=== PATIENT | male | born 1955 | race Caucasian/White ===

== ENCOUNTER 2018-05-19 10:14 | Inpatient (IN) | payer OTHER ==
[~2018-05-19] VITALS: Ht 170.2 cm; Wt 87.9 kg
[2018-05-19] VITALS (26 sets, daily range): BP systolic 103–137; BP diastolic 67–87; PULSE 68–90; RESP 12–21; Ht 170.2 cm; Wt 87.9 kg
[~2018-05-19 10:14] MED LIST: LIDOCAINE 2% (SDV) 5 ML INJ ONE; SEVOFLURANE 15 MIN ONE
[2018-05-19] MEDS ORDERED: BENA20TA4 PO (10:47)
[2018-05-19] MEDS ORDERED: TAMS-14 PO (10:47)
[2018-05-19] MEDS ORDERED: ATOR20TA38 PO (10:47)
[2018-05-19] MEDS ORDERED: METF-849 PO (10:47)
--- NOTE | 2018-05-19 12:18 | HPN ---
Date/Time of Note Date/Time of Note DATE: 05/19/18 TIME: 12:18 Interval H&P Admission Note Pt. seen H&P reviewed: No system changes LEONIDES VIDAL MD May 19, 2018 12:18
--- NOTE | 2018-05-19 12:24 | PREAC ---
Date/Time of Note Date/Time of Note DATE: 05/19/18 TIME: 12:23 Anesthesia Eval and Record Evaluation Time Pre-Procedure Interview DATE: 05/19/18 TIME: 12:23 Age 62 Sex male NPO: 8 hrs Preoperative diagnosis BPH Planned procedure TURP Past Medical History Past Medical History: Includes Cardio: HTN Endo: Diabetes GI: Obesity Surgery & Anesthesia Issues No known issue Meds Anticoagulation: No Beta Aparna within 24 hr: No Reason Beta Aparna not given: Pt. not on B-Aparna Reported Medications Tamsulosin Hcl* (Flomax*) 0.4 Mg Cap.er.24h, 0.4 MG PO HS, CAP 05/19/18 Atorvastatin Calcium* (Atorvastatin Calcium*) 20 Mg Tablet, 20 MG PO QHS, #30 TAB 05/19/18 Benazepril Hcl* (Benazepril Hcl*) 20 Mg Tablet, 20 MG PO DAILY, #30 TAB 05/19/18 Metformin* (Glucophage*) 500 Mg Tab, 500 MG PO WITH BREAKFAST DINNE, #30 TAB 05/19/18 Meds reviewed: Yes Allergies Coded Allergies: No Known Allergy (Unverified , 05/19/18) Allergies Reviewed: Yes Labs/Studies Labs Reviewed: Reviewed by anesthesiologist test: N/A Pre-procedure Exam Last vitals Vital Signs Date Temp Pulse Resp B/P (MAP) Pulse Ox O2 O2 Flow FiO2 Time Delivery Rate 05/19/18 98.9 77 16 137/86 95 Room Air 11:39 (103) Airway: Adequate mouth opening, Adequate thyromental dist Mallampati: Mallampati II Teeth: Normal Lung: Normal Heart: Normal ASA Physical Status ASA physical status: 2 Emergency: None Planned Anesthetic General/MAC: LMA Planned Pain Management Parenteral pain med Pre-operative Attestations Prior to commencing anesthesia and surgery, the patient was re-evaluated, there was verification of: *The patient's identity *The results of appropriate recent lab work and preoperative vital signs *The above evaluation not changing prior to induction *Anesthetic plan, risk benefits, alternative and complications discussed with patient/family; questions answered; patient/family understands, accepts and wishes to proceed. DEION TALBERT May 19, 2018 12:24
[2018-05-19] MEDS ORDERED: PROPOFOL 20 ML ONE (12:30)
[2018-05-19] MEDS ORDERED: ROCURONIUM 50 MG INJ ONE (12:31)
[2018-05-19] MEDS ORDERED: NEOSTIGMINE 10 MG INJ ONE (14:33)
[2018-05-19] MEDS ORDERED: GLYCOPYRROLATE 0.4 MG INJ ONE (14:33)
[2018-05-19] MEDS ORDERED: CEFAZOLIN 1 GM INJ ONE (14:34)
[2018-05-19] MEDS ORDERED: DEXTROSE 5%-0.45% NACL 1,000 ML IV SCH (14:38)
--- NOTE | 2018-05-19 14:45 | OPR ---
Date/Time of Note Date/Time of Note DATE: 05/19/18 TIME: 14:42 Operative Report Procedure Date: May 19, 2018 Preoperative Diagnosis Benign prostatic hypertrophy Postoperative Diagnosis Same pending pathology report Operation/Procedure Performed Transurethral resection of the prostate Surgeon see signature line Manager Terminal nanotechnologist Anesthesia Type: general Anesthesiologist: DEION TALBERT Estimated Blood Loss: 150 - 200 ml's Transfusion none Specimen Prostatic tissue Grafts/Implants none Complications none Pt Condition Post Procedure: stable Disposition: PACU Indications Benign prostatic hypertrophy with lower urinary tract symptoms Procedure Description The patient was brought to the operating room and general anesthesia was induced. Timeout was done, the patient was identified by his name, birthdate and the procedure. The patient was given 2 g of Ancef IV at the start of the procedure. The genital area was then prepped and draped in the usual sterile manner. Cystoscopy was done with a 22 Kittitian cystoscope and it showed prostatic enlargement with obstruction. The bladder was trabeculated. There was no bladder tumors or stones. The cystoscope was then removed and the urethra was dilated with the [place] dilators up to #30 Kittitian. The 26 Kittitian bipolar resectoscope sheath was then introduced under direct vision through the penile urethra all the way to the bladder. Then the resection of the prostate was started. First the median lobe was resected then the right lateral lobe then the left lateral lobe and finally the anterior lobe as well as apical tissue. All the bleeders were electrocoagulated. All the prostatic chips were evacuated. Good hemostasis was obtained. The ureteral orifices as well as ex ternal sphincter were intact and safeguarded during the whole procedure. At the end of the procedure the resectoscope was removed and #24 Kittitian three-way Oliveira catheter was inserted into the bladder. The balloon was inflated with 60 mL of sterile water. The catheter was connected to a drainage bag and continuous bladder irrigation was started in the operating room with normal saline. The patient was transferred to the recovery room in stable and satisfactory condition. LEONIDES VIDAL MD May 19, 2018 14:45
[2018-05-19] MEDS ORDERED: HYDROmorphONE 1 MG/5 ML IV SYRINGE IV PRN ×3 (15:00)
[2018-05-19] MEDS ORDERED: OXYCODONE/ACETAMINOPHEN (5/325) TAB PO PRN ×2 (15:00)
[2018-05-19] MEDS ORDERED: LABETALOL HCL 20MG INJ IV PRN (15:00)
[2018-05-19] MEDS ORDERED: MEPERIDINE 25 MG INJ IV PRN (15:00)
[2018-05-19] MEDS ORDERED: ALBUTEROL 0.083% (NEB) 2.5 MG/3 ML AMP HHN PRN (15:00)
[2018-05-19] MEDS ORDERED: METOCLOPRAMIDE 10 MG INJ IV PRN (15:00)
[2018-05-19] MEDS ORDERED: hydrALAzine 20 MG INJ IV PRN (15:00)
[2018-05-19] MEDS ORDERED: DIPHENHYDRAMINE 50 MG INJ IV PRN (15:00)
[2018-05-19] MEDS ORDERED: EPHEDrine SULFATE 50 MG/5 ML SYG IV PRN (15:00)
[2018-05-19] MEDS ORDERED: FENTAnyl 50 MCG/ML VIAL IV PRN ×3 (15:00)
[2018-05-19] MEDS ORDERED: ONDANSETRON 4 MG INJ IV PRN (15:00)
--- NOTE | 2018-05-19 15:24 | HP ---
Date/Time of Note Date/Time of Note DATE: 05/19/18 TIME: 15:21 Assessment/Plan VTE Prophylaxis Pharmacological prophylaxis: heparin Lines/Catheters IV Catheter Type (from Nrsg): Saline Lock Assessment/Plan Hospital Course 62 yo male with hypertension, DMII, BPH who is POD0 for TURP. We have been asked to provide medical management TURP POD0: - management per Dr Gannon DMII: - Continue metformin Hyperlipidemia: - Continue lipitor Discharge plan per Dr Gannon Results 24hrs Laboratory Tests Test 05/19/18 11:13 Bedside Glucose 132 HPI/ROS Admit Date/Time Admit Date/Time May 19, 2018 at 10:19 Hx of Present Illness 62 yo male with HTN, BPH, DM who is POD0 for TURP Seen in PACU Feels wall Surgery without complications Bladder irrigation underway No pain PMH/Family/Social Past Medical History Medical History: diabetes, hypertension Medications Current Medications Dextrose/Sodium Chloride 1,000 ml @ 0 mls/hr Q0M IV ; Start 05/19/18 at 14:38 Hydromorphone HCl (Dilaudid) 0.2 mg PACU PRN IV MILD PAIN 1-3; Start 05/19/18 at 15:00; Stop 05/19/18 at 21:00 Hydromorphone HCl (Dilaudid) 0.4 mg PACU PRN IV MOD PAIN 4-6; Start 05/19/18 at 15:00; Stop 05/19/18 at 21:00 Hydromorphone HCl (Dilaudid) 0.6 mg PACU PRN IV SEVERE PAIN 7-10; Start 05/19/18 at 15:00; Stop 05/19/18 at 21:00 Fentanyl (Sublimaze) 25 mcg PACU ORDER PRN IV MILD PAIN 1-3; Start 05/19/18 at 15:00; Stop 05/19/18 at 21:00 Fentanyl (Sublimaze) 50 mcg PACU ORDER PRN IV MOD PAIN 4-6; Start 05/19/18 at 15:00; Stop 05/19/18 at 21:00 Fentanyl (Sublimaze) 75 mcg PACU ORDER PRN IV SEVERE PAIN 7-10; Start 05/19/18 at 15:00; Stop 05/19/18 at 21:00 Oxycodone/ Acetaminophen (Percocet (5/ 325)) 1 tab PACU ORDER PRN PO .PAIN 1-5; Start 05/19/18 at 15:00; Stop 05/19/18 at 21:00 Oxycodone/ Acetaminophen (Percocet (5/ 325)) 2 tab PACU ORDER PRN PO .PAIN 6-10; Start 05/19/18 at 15:00; Stop 05/19/18 at 21:00 Ondansetron HCl (Zofran Inj) 4 mg PACU ORDER PRN IV NAUSEA/VOMITING; Start 05/19/18 at 15:00; Stop 05/19/18 at 21:00 Metoclopramide HCl (Reglan) 10 mg PACU ORDER PRN IV NAUSEA/VOMITING; Start 05/19/18 at 15:00; Stop 05/19/18 at 21:00 Labetalol HCl (Labetalol) 5 mg PACU ORDER PRN IV HIGH BLOOD PRESSURE; Start 05/19/18 at 15:00; Stop 05/19/18 at 21:00 Hydralazine HCl (Apresoline) 5 mg PACU ORDER PRN IV HIGH BLOOD PRESSURE; Start 05/19/18 at 15:00; Stop 05/19/18 at 21:00 Ephedrine Sulfate 5 mg PACU ORDER PRN IV BLOOD PRESSURE SUPPORT; Start 05/19/18 at 15:00; Stop 05/19/18 at 21:00 Albuterol (Proventil 0.083% (Neb)) 2.5 mg PACU ORDER PRN HHN .WHEEZING; Start 05/19/18 at 15:00; Stop 05/19/18 at 21:00 Meperidine HCl (Demerol) 25 mg PACU ORDER PRN IV .RIGORS; Start 05/19/18 at 15:00; Stop 05/19/18 at 21:00 Diphenhydramine HCl (Benadryl) 25 mg PACU ORDER PRN IV .PRURITUS; Start 05/19/18 at 15:00; Stop 05/19/18 at 21:00 Coded Allergies: No Known Allergy (Unverified , 05/19/18) Past Surgical History TURP Family History Significant Family History: no pertinent family hx Social History Alcohol Use: none Smoking Status: Never smoker Drug Use: none Exam/Review of Systems Vital Signs Vitals Vital Signs Date Temp Pulse Resp B/P (MAP) Pulse Ox O2 O2 Flow FiO2 Time Delivery Rate 05/19/18 98.9 14:51 05/19/18 77 16 137/86 95 Room Air 11:39 (103) Exam Constitutional: alert, oriented, well developed Psych: no complaints, nl mood/affect Head: normocephalic, atraumatic Eyes: nl conjunctiva, EOMI, nl lids, nl sclera, PERRL ENMT: nl external ears & nose, nl lips & teeth, nl nasal mucosa & septum Neck: supple, non-tender Respiratory: clear to auscultation, normal air movement Cardiovascular: regular rate and rhythm, nl pulses Gastrointestinal: soft, nl liver, spleen, non-tender Musculoskeletal: nl extremities to inspection Extremities: normal pulses Neurological: DESKTOP ANALYST II-XII intact, nl mental status, nl speech, nl strength Skin: nl turgor; No rash or lesions Lymph: nl lymph nodes KELLY BARR MD May 19, 2018 15:24
[2018-05-19] MEDS ORDERED: NACL 0.9% 3 ML SYG IV SCH (15:30)
[2018-05-19] MEDS ORDERED: HYDROCODONE/APAP (5/325) TAB PO PRN (15:30)
[2018-05-19] MEDS ORDERED: GLUCOSE GEL 15 GRAM TUBE BUCCAL PRN (16:00)
[2018-05-19] MEDS ORDERED: DEXTROSE 50% 50 ML SYRINGE IV PRN ×2 (16:00)
[2018-05-19] MEDS ORDERED: GLUCOSE GEL 15 GRAM TUBE PO PRN ×2 (16:00)
[2018-05-19] MEDS ORDERED: GLUCAGON 1 MG INJ IM PRN (16:00)
[2018-05-19] MEDS: ACCU-CHEK XX SCH ×2 (17:52→21:00)
[2018-05-19] MEDS: metFORMIN 500 MG TAB PO SCH (17:52)
[2018-05-19] MEDS ORDERED: ATORVASTATIN 20 MG TAB PO SCH (21:00)
[2018-05-20 00:23] VITALS: BP 120/78; PULSE 73; RESP 18
[2018-05-20 04:55] VITALS: BP 125/74; PULSE 81; RESP 18
[2018-05-20] MEDS: ACCU-CHEK XX SCH ×2 (07:20→12:30)
[2018-05-20 08:13] VITALS: BP 127/81; PULSE 64; RESP 18
[2018-05-20] MEDS ORDERED: BENAZEPRIL 20 MG TAB PO SCH (09:00)
[2018-05-20] MEDS: metFORMIN 500 MG TAB PO SCH (09:35)
--- NOTE | 2018-05-20 10:15 | PN ---
Date/Time of Note Date/Time of Note DATE: 05/20/18 TIME: 10:13 Assessment/Plan Lines/Catheters IV Catheter Type (from Nrs): Saline Lock Loredo in Place (from Nrs): Yes Cont'd loredo catheter reason: other (indicate) (Urological surgery) Assessment/Plan Chief Complaint/Hosp Course 62-year-old male status post transurethral resection of the prostate. He is doing well. The return from the irrigation is clear. We will stop the irrigation on encourage him to drink a lot of fluids. Connect the Loredo catheter to a leg bag. He may go home this afternoon with the Loredo catheter and the leg bag and he will see me in the office next week Tuesday or Tuesday or to remove the Loredo catheter. I wrote him a prescription for Cipro 500 mg 1 tablet every 12 hours for 7 days Colace 100 mg 1 tablet twice a day 100 tablets and milk of magnesia 300 mL he will take 30 mL as needed for constipation. Subjective 24 Hr Interval Summary 62-year-old male status post transurethral resection of the prostate on 05/19/2018. He is doing well. He has no pain and the Loredo catheter is draining clear urine with the bladder irrigation. Constitutional: no complaints Exam/Review of Systems Vital Signs Vitals Vital Signs Date Temp Pulse Resp B/P (MAP) Pulse Ox O2 O2 Flow FiO2 Time Delivery Rate 05/20/18 98.6 64 18 127/81 99 08:13 (96) 05/20/18 Room Air 04:55 05/19/18 2.0 18:30 Intake and Output 05/19/18 05/19/18 05/20/18 1515:00 23:00 07:00 IntakeIntake Total 900 ml 300 ml 650 ml OutputOutput Total 40 ml 550 ml BalanceBalance 860 ml 300 ml 100 ml Exam Free Text/Dictation Patient is afebrile. The return from the irrigation is clear. Results Result Diagram: 05/20/18 0446 05/20/18 0446 LEONIDES VIDAL MD May 20, 2018 10:15
[2018-05-20] MEDS ORDERED: CIPR500T4 PO (10:25)
--- NOTE | 2018-05-20 10:26 | PDOCDIS ---
Discharge Instructions DIAGNOSIS Discharge Diagnosis TURP CONDITION [id number] Patient Condition: [id number] Stable FOLLOW UP/APPOINTMENTS Follow-up Plan Take ciprofloxacin for 7 days Make an appointment to see Dr Gannon in clinic KELLY BARR MD May 20, 2018 10:26
--- NOTE | 2018-05-20 10:37 | DS ---
Date/Time of Note Date/Time of Note DATE: 05/20/18 TIME: 10:36 Discharge Summary Admission/Discharge Info Admit Date/Time May 19, 2018 at 10:19 Discharge Date/Time Discharge Diagnosis TURP Patient Condition: Stable Hx of Present Illness 62 yo male with HTN, BPH, DM who is POD0 for TURP Seen in PACU Feels wall Surgery without complications Bladder irrigation underway No pain Hospital Course 62 yo male with hypertension, DMII, BPH who was admitted following TURP. Monitored overnight without complication Home Meds Reported Medications Tamsulosin Hcl* (Flomax*) 0.4 Mg Cap.er.24h, 0.4 MG PO HS, CAP 05/19/18 Atorvastatin Calcium* (Atorvastatin Calcium*) 20 Mg Tablet, 20 MG PO QHS, #30 TAB 05/19/18 Benazepril Hcl* (Benazepril Hcl*) 20 Mg Tablet, 20 MG PO DAILY, #30 TAB 05/19/18 Metformin* (Glucophage*) 500 Mg Tab, 500 MG PO WITH BREAKFAST DINNE, #30 TAB 05/19/18 Follow-up Plan Take ciprofloxacin for 7 days Make an appointment to see Dr Gannon in clinic Primary Care Provider Not On Staff Doctor Pending Labs Laboratory Tests Test 05/19/18 11:13 05/19/18 17:51 05/19/18 20:10 05/20/18 04:46 Bedside 132 136 194 Glucose mg/dL (70-220) mg/dL (70-220) mg/dL (70-220) White Blood 10.5 Count 10^3/ul (4.8-1 0.8) Red Blood 4.70 Count 10^6/ul (4.70- 6.10) Hemoglobin 14.1 g/dl (14.0-18. 0) Hematocrit 42.6 % (42.0-52.0) Mean 90.6 Corpuscular fl (82.0-101.0 Volume ) Mean 30.0 Corpuscular pg (29.0-33.0) Hemoglobin Mean 33.1 Corpuscular g/dl (32.0-37. Hemoglobin Conc 0) ent Red Cell 13.0 Distribution % (11.5-14.5) Width Platelet Count 160 10^3/UL (140-4 15) Mean Platelet 11.1 Volume fl (7.4-10.4) Immature 0.200 Granulocytes % % (0.001-0.429 ) Neutrophils % 75.7 % (39.0-77.0) Lymphocytes % 15.1 % (15.0-51.0) Monocytes % 6.8 % (0.0-11.0) Eosinophils % 1.9 % (0.0-7.0) Basophils % 0.3 % (0.0-2.0) Nucleated Red 0.0 Blood Cells % /100WBC (0.0-0 .0) Immature 0.020 Granulocytes # 10^3/ul (0.0-0 .031) Neutrophils # 7.9 10^3/ul (1.6-7 .5) Lymphocytes # 1.6 10^3/ul (0.8-2 .9) Monocytes # 0.7 10^3/ul (0.3-0 .9) Eosinophils # 0.2 10^3/ul (0.0-0 .5) Basophils # 0.0 10^3/ul (0.0-0 .1) Nucleated Red 0.0 Blood Cells # 10^3/ul (0.0-0 .0) Sodium Level 140 mmol/L (135-14 4) Potassium 4.2 Level mmol/L (3.5-5. 1) Chloride Level 103 mmol/L (97-110 ) Carbon Dioxide 27 Level mmol/L (21-31) Anion Gap 10 (5-13) Blood Urea 16 Nitrogen mg/dl (7-20) Creatinine 0.78 mg/dl (0.61-1. 24) Est Glomerular > 60 Filtrat mL/min (>60) Rate mL/min Glucose Level 117 mg/dl (70-220) Hemoglobin A1c 7.3 % (0-5.9) Calcium Level 8.8 mg/dl (8.4-10. 2) Total 0.5 Bilirubin mg/dl (0.2-1.3 ) Direct 0.00 Bilirubin mg/dl (0.00-0. 20) Indirect 0.5 Bilirubin mg/dl (0-1.1) Aspartate Amino 22 Transf (AST/SGO IU/L (15-46) T) Alanine 27 Aminotransferas IU/L (13-69) e (ALT/SGPT) Alkaline 68 Phosphatase IU/L (42-121) Total Protein 6.8 g/dl (6.1-8.1) Albumin 3.6 g/dl (3.3-4.9) Globulin 3.20 g/dl (1.3-3.2) Albumin/Globuli 1.12 n Ratio Test 05/20/18 07:18 05/20/18 08:15 Lab Scanned REFERENCE Report LAB [id number] Bedside 123 Glucose mg/dL (70-220) Microbiology Date/Time Source Procedure Growth Status 05/19/18 12:58 Cystobladder Urine Culture - Preliminary NO GROWTH Resulted AFTER 24 HOURS KELLY BARR MD May 20, 2018 10:37
== END 2018-05-20 14:08 | disposition home or self-care (01) | DRG 714 ==
LOC: REC 10:19 → EDSTATUS 12:30 → MS1 16:50
PROVIDERS: ADMIT Urology; ATTEND Urology
PROC: 0VT08ZZ Resection of Prostate, Via Natural or Artificial Opening Endoscopic (ICD-10-PCS; principal; 2018-05-19 12:30)
DX: N40.1 Benign prostatic hyperplasia with lower urinary tract symptoms (principal); I10 Essential (primary) hypertension; E11.9 Type 2 diabetes mellitus without complications
CPT/HCPCS: 80053; 82962; 83036; 85025; 87086; 88305; J0690; J2710; J3010